=== PATIENT | female | born 1975 | race Caucasian/White ===

== ENCOUNTER 2017-03-09 22:15 | Inpatient (IN) | payer OTHER ==
[~2017-03-09] VITALS: Ht 170.2 cm; Wt 77.1 kg
[2017-03-10] MEDS ORDERED: diphenhydrAMINE 50 MG CAPSULE PO PRN (00:45)
[2017-03-10] MEDS ORDERED: LORAZEPAM 2 MG/1 ML VIAL IM PRN (00:45)
[2017-03-10] MEDS ORDERED: MIRALAX 17 GM POWD.PACK PO PRN (00:45)
[2017-03-10] MEDS ORDERED: DIAZEPAM 5 MG TABLET PO PRN (00:45)
[2017-03-10] MEDS ORDERED: DIAZEPAM 10 MG TABLET PO PRN ×2 (00:45)
[2017-03-10] MEDS ORDERED: LOPERAMIDE HCL 2 MG CAPSULE PO PRN ×2 (00:45)
[2017-03-10] MEDS ORDERED: MAGNESIUM HYDROXIDE 30 ML LIQUID UDC PO PRN (00:45)
[2017-03-10] MEDS ORDERED: ACETAMINOPHEN 325 MG TABLET PO PRN (00:45)
[2017-03-10] MEDS ORDERED: MAG HYDROX/AL HYDROX/SIMETH 30 ML LIQUID UDC PO PRN (00:45)
[2017-03-10] MEDS ORDERED: BUPRENORPHINE HCL 2 MG TAB.SUBL SL PRN (00:45)
[2017-03-10] MEDS ORDERED: diphenhydrAMINE 25 MG CAP PO ONE ×4 (02:15→02:36)
[2017-03-10] MEDS ORDERED: diphenhydrAMINE 25 MG CAP PO PRN ×2 (02:15)
[2017-03-10] MEDS: CLONIDINE HCL 0.1 MG TABLET PO PRN ×3 (02:24→17:15)
[2017-03-10] MEDS ORDERED: CLONIDINE HCL 0.1 MG TABLET ONE (02:37)
[2017-03-10 03:24] LABS: *AMPHETAMINE, URINE NEGATIVE (NEGATIVE); *BARBITURATE, URINE NEGATIVE (NEGATIVE); *CANNABINOID, URINE NEGATIVE (NEGATIVE); *COCCAINE, URINE NEGATIVE (NEGATIVE); *OPIATE, URINE NEGATIVE (NEGATIVE); *PHENCYCLIDINE SCREEN,URINE NEGATIVE (NEGATIVE)
[2017-03-10 04:00] VITALS: BP 155/98
[2017-03-10] MEDS ORDERED: DOCU-141 PO (04:11)
[2017-03-10] MEDS ORDERED: BETA15OI TP (04:11)
[2017-03-10] MEDS ORDERED: PHEN57OI20 RC (04:11)
[2017-03-10] MEDS ORDERED: BACL20TA PO (04:11)
[2017-03-10] MEDS ORDERED: AMLO10TA4 PO (04:11)
[2017-03-10] MEDS ORDERED: BUSP10TA3 PO (04:11)
[2017-03-10] MEDS ORDERED: QUET200T PO (04:11)
[2017-03-10 08:00] VITALS: BP 141/85
[2017-03-10 08:00] LABS: *URINE HCG, QUAL NEGATIVE (NEGATIVE)
[2017-03-10 08:47] LABS: BASOPHILS # (AUTO) 0.1 K/uL (0.0-8.0); EOSINOPHILS # (AUTO) 0.3 K/uL (0.0-0.7); HEMATOCRIT 42.5 % (31.2-41.9); HEMOGLOBIN 14.1 g/dL (10.9-14.3); MEAN CORPUSCULAR HGB CONC 33 g/dL (32.3-35.6); MEAN CORPUSCULAR VOLUME 87.7 fL (75.5-95.3); MONOCYTES # (AUTO) 0.3 K/uL (2.0-10.0); MONOCYTES % (AUTO) 3.8 % (0.0-11.0); NEUTROPHILS # (AUTO) 5.7 K/uL (1.8-8.9); NEUTROPHILS % (AUTO) 67.2 % (38.5-71.5); PLATELET COUNT (AUTO) 259 K/uL (179-408); RED BLOOD CELL COUNT(AUTO) 4.84 MIL/uL (3.63-4.92); WHITE BLOOD COUNT (AUTO) 8.5 K/uL (3.8-11.8)
[2017-03-10 08:55] LABS: ETHANOL < 3 MG/DL (0-0)
[2017-03-10 08:58] LABS: ALANINE AMINOTRANSFERASE 16 U/L (14-59); ALKALINE PHOSPHATASE 69 U/L (50-136); ASPARTATE AMINOTRANSFERASE 14 U/L (15-37); BILIRUBIN,TOTAL 0.2 mg/dL (0.2-1.0); CARBON DIOXIDE 31 mmol/L (21-32); CHLORIDE 106 mmol/L (98-107); CREATININE 0.7 mg/dL (0.6-1.3); GLUCOSE 98 mg/dL (74-106); MAGNESIUM 2.1 mg/dL (1.8-2.4); POTASSIUM 4.5 mmol/L (3.5-5.1); TOTAL PROTEIN, SERUM 7.1 g/dL (6.4-8.2); UREA NITROGEN, BLOOD 7 mg/dL (7-18)
[2017-03-10] MEDS: BUPRENORPHINE HCL 2 MG TAB.SUBL SL SCH ×3 (09:00→17:00)
[2017-03-10] MEDS: DIAZEPAM 10 MG TABLET PO SCH ×4 (09:08→20:47)
[2017-03-10] MEDS: METHOCARBAMOL 750 MG TABLET PO PRN ×2 (09:08→16:10)
[2017-03-10] MEDS: DICYCLOMINE HCL 20 MG TABLET PO PRN ×2 (09:08→20:47)
[2017-03-10] MEDS: ONDANSETRON ODT 4 MG TAB.RAPDIS SL PRN ×2 (09:09→20:48)
[2017-03-10 12:00] VITALS: BP 136/80
[2017-03-10] MEDS: VENLAFAXINE XR 75 MG CAP.SR.24H PO SCH (12:17)
[2017-03-10] MEDS ORDERED: DOCUSATE SODIUM 250 MG CAPSULE PO PRN (12:45)
[2017-03-10] MEDS ORDERED: NICOTINE POLACRILEX 4 MG GUM-PK OF TEN BC PRN (12:45)
[2017-03-10] MEDS ORDERED: NICOTINE 14 MG/24HR PATCH TD PRN (12:45)
[2017-03-10] MEDS ORDERED: AMLODIPINE 10 MG TABLET PO ONE (13:00)
[2017-03-10 16:00] VITALS: BP 134/79
[2017-03-10] MEDS: ONDANSETRON 4 MG/2 ML VIAL IM PRN (17:02)
[2017-03-10] MEDS: IBUPROFEN 600 MG TABLET PO PRN (17:02)
[2017-03-10 20:00] VITALS: BP 112/74
[2017-03-10] MEDS: GABAPENTIN 300 MG CAPSULE PO SCH (20:47)
[2017-03-11] VITALS: BP 110/71
[2017-03-11] MEDS: ONDANSETRON 4 MG/2 ML VIAL IM PRN (01:43)
[2017-03-11] MEDS: QUETIAPINE FUMARATE 100 MG TABLET PO PRN (01:43)
[2017-03-11 04:00] VITALS: BP 108/68
[2017-03-11 08:00] VITALS: BP 128/94
[2017-03-11] MEDS: METHOCARBAMOL 750 MG TABLET PO PRN ×2 (08:10→20:15)
[2017-03-11] MEDS: IBUPROFEN 600 MG TABLET PO PRN (08:10)
[2017-03-11] MEDS: VENLAFAXINE XR 75 MG CAP.SR.24H PO SCH (08:10)
[2017-03-11] MEDS: AMLODIPINE 10 MG TABLET PO SCH (08:10)
[2017-03-11] MEDS: GABAPENTIN 300 MG CAPSULE PO SCH ×3 (08:10→20:15)
[2017-03-11] MEDS: CLONIDINE HCL 0.1 MG TABLET PO PRN (08:11)
[2017-03-11] MEDS: BUPRENORPHINE HCL 2 MG TAB.SUBL SL SCH ×4 (08:11→20:15)
[2017-03-11] MEDS: DIAZEPAM 10 MG TABLET PO SCH ×3 (08:11→20:15)
[2017-03-11] MEDS ORDERED: TUBERCULIN,PURIF.PROT.DERIV. 5 TU/0.1 ML TEST ID ONE (09:00)
[2017-03-11 09:06] LABS: HEPATITIS B SURFACE AG Negative (Negative)
[2017-03-11 12:00] VITALS: BP 136/95
[2017-03-11 16:00] VITALS: BP 100/60
[2017-03-11] MEDS ORDERED: KETOROLAC TROMETHAMINE 30 MG INJ IM PRN (16:15)
[2017-03-11 20:00] VITALS: BP 121/75
[2017-03-11] MEDS ORDERED: CLONIDINE HCL 0.1 MG TABLET PO SCH (21:00)
[2017-03-12] VITALS: BP 104/62
[2017-03-12 04:00] VITALS: BP 97/60
[2017-03-12 08:00] VITALS: BP 123/84
[2017-03-12] MEDS: METHOCARBAMOL 750 MG TABLET PO PRN (08:42)
[2017-03-12] MEDS: VENLAFAXINE XR 75 MG CAP.SR.24H PO SCH (08:43)
[2017-03-12] MEDS: GABAPENTIN 300 MG CAPSULE PO SCH ×2 (08:43→15:02)
[2017-03-12] MEDS: AMLODIPINE 10 MG TABLET PO SCH (08:43)
[2017-03-12] MEDS: DIAZEPAM 5 MG TABLET PO SCH ×3 (08:44→17:26)
[2017-03-12] MEDS ORDERED: BUPRENORPHINE HCL 2 MG TAB.SUBL SL SCH (09:00)
[2017-03-12] MEDS ORDERED: PNEUMOCOCCAL 23-VAL P-SAC VAC 0.5 ML VIAL IM ONE (09:00)
[2017-03-12 12:58] VITALS: BP 110/72
[2017-03-12] MEDS: BUPRENORPHINE HCL 2 MG TAB.SUBL SL SCH ×2 (15:03→20:29)
[2017-03-12] MEDS: BACLOFEN 10 MG TABLET PO SCH ×2 (15:03→20:28)
[2017-03-12 16:00] VITALS: BP 121/84
[2017-03-12 20:17] VITALS: BP 118/82
[2017-03-12] MEDS: CLONIDINE HCL 0.1 MG TABLET PO SCH (20:28)
[2017-03-12] MEDS ORDERED: DIAZEPAM 10 MG TABLET PO SCH (21:00)
[2017-03-12] MEDS ORDERED: GABAPENTIN 300 MG CAPSULE PO SCH (21:00)
[2017-03-12] MEDS: QUETIAPINE FUMARATE 100 MG TABLET PO PRN (23:03)
[2017-03-12] MEDS ORDERED: QUETIAPINE FUMARATE 25 MG TABLET ONE (23:16)
[2017-03-13 08:00] VITALS: BP 114/64
[2017-03-13] MEDS: GABAPENTIN 300 MG CAPSULE PO SCH ×3 (08:41→20:11)
[2017-03-13] MEDS: VENLAFAXINE XR 75 MG CAP.SR.24H PO SCH (08:41)
[2017-03-13] MEDS: BACLOFEN 10 MG TABLET PO SCH ×2 (08:41→14:07)
[2017-03-13] MEDS: DIAZEPAM 5 MG TABLET PO SCH ×3 (08:41→20:11)
[2017-03-13] MEDS: BUPRENORPHINE HCL 2 MG TAB.SUBL SL SCH ×3 (08:41→20:12)
[2017-03-13] MEDS: CLONIDINE HCL 0.1 MG TABLET PO SCH ×2 (08:42→20:12)
[2017-03-13] MEDS: AMLODIPINE 10 MG TABLET PO SCH (08:42)
[2017-03-13 12:00] VITALS: BP 96/60
[2017-03-13 16:00] VITALS: BP 104/71
[2017-03-13 20:09] VITALS: BP 105/64
[2017-03-13] MEDS: DICYCLOMINE HCL 20 MG TABLET PO PRN (20:11)
[2017-03-13] MEDS: BACLOFEN 20 MG TABLET PO SCH (20:12)
[2017-03-14 08:00] VITALS: BP 110/68
[2017-03-14] MEDS: VENLAFAXINE XR 75 MG CAP.SR.24H PO SCH (08:08)
[2017-03-14] MEDS: GABAPENTIN 300 MG CAPSULE PO SCH ×3 (08:08→22:26)
[2017-03-14] MEDS: BUPRENORPHINE HCL 2 MG TAB.SUBL SL SCH ×2 (08:08→22:26)
[2017-03-14] MEDS: DIAZEPAM 5 MG TABLET PO SCH ×2 (08:08→22:26)
[2017-03-14] MEDS: BACLOFEN 20 MG TABLET PO SCH ×3 (08:09→22:26)
[2017-03-14] MEDS: CLONIDINE HCL 0.1 MG TABLET PO SCH ×3 (08:09→22:26)
[2017-03-14 12:00] VITALS: BP 115/73
[2017-03-14 17:00] VITALS: BP 109/66
[2017-03-14 20:00] VITALS: BP 106/65
[2017-03-15] VITALS: BP 102/60
[2017-03-15 04:00] VITALS: BP 105/66
[2017-03-15 08:00] VITALS: BP 112/66
[2017-03-15] MEDS: VENLAFAXINE XR 75 MG CAP.SR.24H PO SCH (08:56)
[2017-03-15] MEDS: BACLOFEN 20 MG TABLET PO SCH ×3 (08:56→20:23)
[2017-03-15] MEDS: GABAPENTIN 300 MG CAPSULE PO SCH (08:57)
[2017-03-15] MEDS: CLONIDINE HCL 0.1 MG TABLET PO SCH ×3 (08:57→20:23)
[2017-03-15] MEDS ORDERED: BUPRENORPHINE HCL 2 MG TAB.SUBL SL SCH (09:00)
[2017-03-15] MEDS ORDERED: DIAZEPAM 5 MG TABLET PO SCH (09:00)
[2017-03-15 12:00] VITALS: BP 103/63
[2017-03-15] MEDS: GABAPENTIN 400 MG CAPSULE PO SCH ×2 (15:27→20:23)
[2017-03-15 16:00] VITALS: BP 103/63
[2017-03-15] MEDS ORDERED: HYDROXYZINE PAMOATE 25 MG CAPSULE PO PRN (16:30)
[2017-03-15 20:00] VITALS: BP 104/68
[2017-03-15] MEDS ORDERED: DIPH50CA37 PO (20:03)
[2017-03-15] MEDS ORDERED: GABA-536 PO (20:03)
[2017-03-15] MEDS ORDERED: CLON0.1T14 PO (20:03)
[2017-03-15] MEDS ORDERED: IBUP-1955 PO (20:03)
[2017-03-15] MEDS ORDERED: HYDR-3895 PO (20:03)
[2017-03-15] MEDS ORDERED: BACL20TA PO (20:03)
[2017-03-15] MEDS ORDERED: VENL75CA56 PO (20:03)
[2017-03-15] MEDS ORDERED: DICY20TA28 PO (20:03)
[2017-03-15] MEDS: QUETIAPINE FUMARATE 100 MG TABLET PO PRN (22:08)
[2017-03-16 08:13] VITALS: BP 108/69
[2017-03-16] MEDS: BACLOFEN 20 MG TABLET PO SCH (08:48)
[2017-03-16] MEDS: GABAPENTIN 400 MG CAPSULE PO SCH (08:48)
[2017-03-16] MEDS: VENLAFAXINE XR 75 MG CAP.SR.24H PO SCH (08:48)
[2017-03-16 08:49] VITALS: BP 108/69
[2017-03-16] MEDS: CLONIDINE HCL 0.1 MG TABLET PO SCH (08:49)
== END 2017-03-16 09:30 | disposition other institution (70) | DRG 895 ==
LOC: SRC 03-10 00:50
PROVIDERS: ADMIT Internal Medicine; ATTEND Internal Medicine
PROC: HZ2ZZZZ Detoxification Services for Substance Abuse Treatment (ICD-10-PCS; principal; 2017-03-10)
PROC: HZ41ZZZ Group Counseling for Substance Abuse Treatment, Behavioral (ICD-10-PCS; 2017-03-12)
PROC: HZ31ZZZ Individual Counseling for Substance Abuse Treatment, Behavioral (ICD-10-PCS; 2017-03-13)
DX: F11.23 Opioid dependence with withdrawal (principal); F33.2 Major depressive disorder, recurrent severe without psychotic features; I10 Essential (primary) hypertension; Z79.899 Other long term (current) drug therapy; Z81.1 Family history of alcohol abuse and dependence; Z81.8 Family history of other mental and behavioral disorders; F13.230 Sedative, hypnotic or anxiolytic dependence with withdrawal, uncomplicated; Z87.442 Personal history of urinary calculi; Z72.0 Tobacco use; F41.9 Anxiety disorder, unspecified
CPT/HCPCS: 36415; 70030-TC; 80307; 80346; 83735; 84703; 85025; 86580; 86592; 86705; 86803; 87340; 87806; A4663; G0480; J2405; Q0162; Q0163

== ENCOUNTER 2017-10-25 18:40 | Inpatient (IN) | payer OTHER ==
[~2017-10-25] VITALS: Ht 172.7 cm; Wt 81.6 kg
[~2017-10-25 18:40] MED LIST: BACL20TA PO; CLON0.1T14 PO; DICY20TA28 PO; DIPH50CA37 PO; DOCU-141 PO; GABA-536 PO; HYDR-3895 PO; IBUP-1955 PO; PHEN57OI20 RC; QUET200T PO; VENL75CA56 PO
[2017-10-26] MEDS ORDERED: ONDANSETRON ODT 4 MG TAB.RAPDIS SL PRN (00:45)
[2017-10-26] MEDS ORDERED: MAGNESIUM HYDROXIDE 30 ML LIQUID UDC PO PRN (00:45)
[2017-10-26] MEDS ORDERED: MIRALAX 17 GM POWD.PACK PO PRN (00:45)
[2017-10-26] MEDS ORDERED: MAG HYDROX/AL HYDROX/SIMETH 30 ML LIQUID UDC PO PRN (00:45)
[2017-10-26] MEDS ORDERED: LORAZEPAM 2 MG/1 ML VIAL IM PRN (00:45)
[2017-10-26] MEDS ORDERED: DICYCLOMINE HCL 20 MG TABLET PO PRN (00:45)
[2017-10-26] MEDS ORDERED: ONDANSETRON 4 MG/2 ML VIAL IM PRN (00:45)
[2017-10-26] MEDS ORDERED: LOPERAMIDE HCL 2 MG CAPSULE PO PRN ×2 (00:45)
[2017-10-26] MEDS ORDERED: LORAZEPAM 1 MG TABLET PO PRN (00:45)
[2017-10-26] MEDS ORDERED: BUPRENORPHINE HCL 2 MG TAB.SUBL SL PRN (00:45)
[2017-10-26] MEDS ORDERED: diphenhydrAMINE 50 MG CAPSULE PO PRN (00:45)
[2017-10-26] MEDS ORDERED: QUET100T PO (00:47)
[2017-10-26] MEDS ORDERED: LEVE500T20 PO (00:47)
[2017-10-26] MEDS ORDERED: VENL75CA56 PO (00:47)
[2017-10-26] MEDS ORDERED: VENL37.515 PO (00:47)
[2017-10-26] MEDS ORDERED: DICY20TA11 PO (00:47)
[2017-10-26] MEDS ORDERED: GABA800T2 PO (00:47)
[2017-10-26] MEDS ORDERED: HYDR26CR TP (00:47)
[2017-10-26] MEDS ORDERED: DOCU-141 PO (00:47)
[2017-10-26 01:04] LABS: *URINE HCG, QUAL NEGATIVE (NEGATIVE)
[2017-10-26 01:07] LABS: *AMPHETAMINE, URINE NEGATIVE (NEGATIVE); *BARBITURATE, URINE NEGATIVE (NEGATIVE); *CANNABINOID, URINE NEGATIVE (NEGATIVE); *COCCAINE, URINE NEGATIVE (NEGATIVE); *OPIATE, URINE POSITIVE (NEGATIVE); *PHENCYCLIDINE SCREEN,URINE NEGATIVE (NEGATIVE)
[2017-10-26 02:00] LABS: BASOPHILS # (AUTO) 0.1 K/uL (0.0-8.0); EOSINOPHILS # (AUTO) 0.6 K/uL (0.0-0.7); HEMATOCRIT 39.8 % (31.2-41.9); HEMOGLOBIN 13.2 g/dL (10.9-14.3); LYMPHOCYTES # (AUTO) 2.5 K/uL (20.0-40.0); LYMPHOCYTES % (AUTO) 34.2 % (20.5-51.5); MEAN CORPUSCULAR HGB CONC 33 g/dL (32.3-35.6); MEAN CORPUSCULAR VOLUME 87.5 fL (75.5-95.3); MONOCYTES # (AUTO) 0.5 K/uL (2.0-10.0); MONOCYTES % (AUTO) 6.3 % (0.0-11.0); NEUTROPHILS # (AUTO) 3.7 K/uL (1.8-8.9); NEUTROPHILS % (AUTO) 50.5 % (38.5-71.5); PLATELET COUNT (AUTO) 217 K/uL (179-408); RED BLOOD CELL COUNT(AUTO) 4.55 MIL/uL (3.63-4.92); WHITE BLOOD COUNT (AUTO) 7.4 K/uL (3.8-11.8)
[2017-10-26 02:04] LABS: ETHANOL < 3 MG/DL (0-0)
[2017-10-26 02:30] LABS: ALANINE AMINOTRANSFERASE 23 U/L (14-59); ALKALINE PHOSPHATASE 59 U/L (50-136); AMYLASE 43 U/L (25-115); ASPARTATE AMINOTRANSFERASE 13 U/L (15-37); BILIRUBIN,TOTAL 0.1 mg/dL (0.2-1.0); CARBON DIOXIDE 31 mmol/L (21-32); CHLORIDE 103 mmol/L (98-107); CREATININE 0.8 mg/dL (0.6-1.3); GLUCOSE 112 mg/dL (74-106); LIPASE 125 U/L (73-393); MAGNESIUM 1.8 mg/dL (1.8-2.4); TOTAL PROTEIN, SERUM 6.7 g/dL (6.4-8.2); UREA NITROGEN, BLOOD 7 mg/dL (7-18)
[2017-10-26 02:41] LABS: THYROID STIMULATING HORMONE 1.457 mIU/mL (0.358-3.740)
[2017-10-26 04:00] VITALS: BP 127/60
[2017-10-26] MEDS: LORAZEPAM 1 MG TABLET PO PRN ×2 (04:56→09:33)
[2017-10-26] MEDS: METHOCARBAMOL 750 MG TABLET PO PRN ×2 (04:56→13:29)
[2017-10-26 09:00] VITALS: BP 123/85
[2017-10-26] MEDS: MULTIVITAMINS,THERAPEUTIC TABLET PO SCH (09:33)
[2017-10-26] MEDS ORDERED: 5 DAY TAPER OF LORAZEPAM -SERENITY PROTOCOL PO PRN (10:30)
[2017-10-26] MEDS ORDERED: 5 DAY TAPER BUPRENORPHINE -SERENITY PROTOCOL SL PRN (10:30)
[2017-10-26 13:17] VITALS: BP 137/83
[2017-10-26] MEDS: LORAZEPAM 1 MG TABLET PO SCH ×3 (13:30→20:57)
[2017-10-26] MEDS: BUPRENORPHINE HCL 2 MG TAB.SUBL SL SCH ×3 (14:00→20:57)
[2017-10-26 17:12] VITALS: BP 131/60
[2017-10-26] MEDS: VENLAFAXINE 37.5 MG TABLET PO SCH (17:18)
[2017-10-26] MEDS: BACLOFEN 20 MG TABLET PO PRN ×2 (17:18→21:23)
[2017-10-26 20:00] VITALS: BP 149/87
[2017-10-26] MEDS: QUETIAPINE FUMARATE 100 MG TABLET PO SCH (20:57)
[2017-10-27] VITALS: BP 137/91
[2017-10-27 04:00] VITALS: BP 143/94
[2017-10-27] MEDS: HYDROXYZINE PAMOATE 25 MG CAPSULE PO PRN ×2 (06:11→14:10)
[2017-10-27] MEDS: BACLOFEN 20 MG TABLET PO PRN ×2 (06:17→14:10)
[2017-10-27 08:00] VITALS: BP 154/99
[2017-10-27 08:08] LABS: HEPATITIS B SURFACE AG Negative (Negative)
[2017-10-27] MEDS: LORAZEPAM 1 MG TABLET PO SCH ×3 (08:39→22:26)
[2017-10-27] MEDS: MULTIVITAMINS,THERAPEUTIC TABLET PO SCH (08:39)
[2017-10-27] MEDS: VENLAFAXINE 37.5 MG TABLET PO SCH (08:40)
[2017-10-27] MEDS: BUPRENORPHINE HCL 2 MG TAB.SUBL SL SCH ×3 (08:43→22:29)
[2017-10-27] MEDS ORDERED: TUBERCULIN,PURIF.PROT.DERIV. 5 TU/0.1 ML TEST ID ONE (09:00)
[2017-10-27] MEDS: CLONIDINE HCL 0.1 MG TABLET PO PRN ×2 (09:54→16:36)
[2017-10-27] MEDS: IBUPROFEN 600 MG TABLET PO PRN (11:13)
[2017-10-27 12:00] VITALS: BP 151/103
[2017-10-27] MEDS: LEVETIRACETAM 500 MG TABLET PO SCH ×2 (14:55→22:25)
[2017-10-27] MEDS: GABAPENTIN 400 MG CAPSULE PO SCH ×2 (14:55→16:36)
[2017-10-27] MEDS: DOCUSATE SODIUM 100 MG CAPSULE PO SCH (14:55)
[2017-10-27] MEDS ORDERED: BUPRENORPHINE HCL 2 MG TAB.SUBL SL ONE (15:30)
[2017-10-27] MEDS ORDERED: LORAZEPAM 1 MG TABLET PO ONE (15:30)
[2017-10-27 16:00] VITALS: BP 161/103
[2017-10-27] MEDS: ACETAMINOPHEN 325 MG TABLET PO PRN (16:36)
[2017-10-27] MEDS: BACLOFEN 20 MG TABLET PO SCH ×2 (17:06→23:59)
[2017-10-27 20:00] VITALS: BP 148/94
[2017-10-27] MEDS: QUETIAPINE FUMARATE 100 MG TABLET PO SCH (22:26)
[2017-10-28] VITALS (7 sets, daily range): BP systolic 117–149; BP diastolic 78–97
[2017-10-28] MEDS: BACLOFEN 20 MG TABLET PO SCH ×3 (06:51→17:24)
[2017-10-28] MEDS ORDERED: VENLAFAXINE 37.5 MG TABLET PO SCH (09:00)
[2017-10-28] MEDS ORDERED: BUPRENORPHINE HCL 2 MG TAB.SUBL SL SCH (09:00)
[2017-10-28] MEDS: VENLAFAXINE XR 75 MG CAP.SR.24H PO SCH (09:19)
[2017-10-28] MEDS: MULTIVITAMINS,THERAPEUTIC TABLET PO SCH (09:19)
[2017-10-28] MEDS: DOCUSATE SODIUM 100 MG CAPSULE PO SCH (09:19)
[2017-10-28] MEDS: LEVETIRACETAM 500 MG TABLET PO SCH ×2 (09:19→20:35)
[2017-10-28] MEDS: GABAPENTIN 400 MG CAPSULE PO SCH ×3 (09:19→17:24)
[2017-10-28] MEDS: LORAZEPAM 1 MG TABLET PO SCH ×4 (09:19→20:35)
[2017-10-28] MEDS: BUPRENORPHINE HCL 2 MG TAB.SUBL SL SCH ×2 (15:13→20:35)
[2017-10-28] MEDS: QUETIAPINE FUMARATE 100 MG TABLET PO SCH (20:35)
[2017-10-29] VITALS: BP 100/55
[2017-10-29 04:00] VITALS: BP 122/59
[2017-10-29] MEDS: BACLOFEN 20 MG TABLET PO SCH ×4 (05:15→17:24)
[2017-10-29 08:00] VITALS: BP 142/89
[2017-10-29] MEDS: GABAPENTIN 400 MG CAPSULE PO SCH ×3 (09:01→16:47)
[2017-10-29] MEDS: MULTIVITAMINS,THERAPEUTIC TABLET PO SCH (09:01)
[2017-10-29] MEDS: DOCUSATE SODIUM 100 MG CAPSULE PO SCH (09:01)
[2017-10-29] MEDS: LORAZEPAM 1 MG TABLET PO SCH ×3 (09:01→20:38)
[2017-10-29] MEDS: LEVETIRACETAM 500 MG TABLET PO SCH ×2 (09:02→20:38)
[2017-10-29] MEDS: BUPRENORPHINE HCL 2 MG TAB.SUBL SL SCH ×3 (09:02→20:38)
[2017-10-29] MEDS: VENLAFAXINE XR 75 MG CAP.SR.24H PO SCH (09:02)
[2017-10-29 12:00] VITALS: BP 144/98
[2017-10-29 16:00] VITALS: BP 175/98
[2017-10-29] MEDS: CLONIDINE HCL 0.1 MG TABLET PO PRN (16:47)
[2017-10-29 20:00] VITALS: BP 119/95
[2017-10-29] MEDS: QUETIAPINE FUMARATE 100 MG TABLET PO SCH (20:39)
[2017-10-30] VITALS: BP 103/71
[2017-10-30 04:00] VITALS: BP 115/62
[2017-10-30] MEDS: BACLOFEN 20 MG TABLET PO SCH ×4 (06:07→17:27)
[2017-10-30 08:22] VITALS: BP 145/89
[2017-10-30] MEDS: GABAPENTIN 400 MG CAPSULE PO SCH ×3 (08:44→17:28)
[2017-10-30] MEDS: VENLAFAXINE XR 75 MG CAP.SR.24H PO SCH (08:44)
[2017-10-30] MEDS: LORAZEPAM 1 MG TABLET PO SCH ×2 (08:44→20:23)
[2017-10-30] MEDS: LEVETIRACETAM 500 MG TABLET PO SCH ×2 (08:44→20:23)
[2017-10-30] MEDS: MULTIVITAMINS,THERAPEUTIC TABLET PO SCH (08:44)
[2017-10-30] MEDS: DOCUSATE SODIUM 100 MG CAPSULE PO SCH (08:44)
[2017-10-30] MEDS ORDERED: BUPRENORPHINE HCL 2 MG TAB.SUBL SL SCH (09:00)
[2017-10-30 12:05] VITALS: BP 150/94
[2017-10-30] MEDS: CLONIDINE HCL 0.1 MG TABLET PO PRN (13:17)
[2017-10-30 16:30] VITALS: BP 134/96
[2017-10-30 20:00] VITALS: BP 139/84
[2017-10-30] MEDS: QUETIAPINE FUMARATE 100 MG TABLET PO SCH (20:23)
[2017-10-30] MEDS: IBUPROFEN 600 MG TABLET PO PRN (20:23)
[2017-10-31] MEDS: BACLOFEN 20 MG TABLET PO SCH ×4 (06:00→17:32)
[2017-10-31 08:00] VITALS: BP 147/68
[2017-10-31] MEDS: VENLAFAXINE XR 75 MG CAP.SR.24H PO SCH (08:40)
[2017-10-31] MEDS: MULTIVITAMINS,THERAPEUTIC TABLET PO SCH (08:40)
[2017-10-31] MEDS: DOCUSATE SODIUM 100 MG CAPSULE PO SCH (08:40)
[2017-10-31] MEDS: GABAPENTIN 400 MG CAPSULE PO SCH ×3 (08:40→17:32)
[2017-10-31] MEDS: LEVETIRACETAM 500 MG TABLET PO SCH ×2 (08:40→20:58)
[2017-10-31 12:00] VITALS: BP 143/97
[2017-10-31] MEDS: CLONIDINE HCL 0.1 MG TABLET PO PRN (14:27)
[2017-10-31] MEDS ORDERED: CLON0.1T14 PO (14:55)
[2017-10-31 16:00] VITALS: BP 136/96
[2017-10-31 20:00] VITALS: BP 131/98
[2017-10-31] MEDS: QUETIAPINE FUMARATE 100 MG TABLET PO SCH (20:58)
[2017-11-01] VITALS: BP 94/55
[2017-11-01] MEDS: HYDROXYZINE PAMOATE 25 MG CAPSULE PO PRN (03:55)
[2017-11-01 04:00] VITALS: BP 127/90
[2017-11-01] MEDS: ACETAMINOPHEN 325 MG TABLET PO PRN (04:29)
[2017-11-01] MEDS: BACLOFEN 20 MG TABLET PO SCH ×2 (06:26)
[2017-11-01 08:00] VITALS: BP 149/96
[2017-11-01 08:28] VITALS: BP 149/93
[2017-11-01] MEDS: MULTIVITAMINS,THERAPEUTIC TABLET PO SCH (08:28)
[2017-11-01] MEDS: LEVETIRACETAM 500 MG TABLET PO SCH (08:28)
[2017-11-01] MEDS: CLONIDINE HCL 0.1 MG TABLET PO PRN (08:28)
[2017-11-01] MEDS: DOCUSATE SODIUM 100 MG CAPSULE PO SCH (08:28)
[2017-11-01] MEDS: VENLAFAXINE XR 75 MG CAP.SR.24H PO SCH (08:28)
[2017-11-01] MEDS: GABAPENTIN 400 MG CAPSULE PO SCH (08:28)
== END 2017-11-01 09:40 | disposition other institution (70) | DRG 895 ==
LOC: SRC 23:37
PROVIDERS: ADMIT Family Medicine Addiction Medicine; ATTEND Family Medicine
PROC: HZ2ZZZZ Detoxification Services for Substance Abuse Treatment (ICD-10-PCS; principal; 2017-10-25)
PROC: HZ31ZZZ Individual Counseling for Substance Abuse Treatment, Behavioral (ICD-10-PCS; 2017-10-27)
PROC: HZ41ZZZ Group Counseling for Substance Abuse Treatment, Behavioral (ICD-10-PCS; 2017-10-28)
DX: F11.23 Opioid dependence with withdrawal (principal); F33.1 Major depressive disorder, recurrent, moderate; F41.9 Anxiety disorder, unspecified; F13.239 Sedative, hypnotic or anxiolytic dependence with withdrawal, unspecified; Z79.899 Other long term (current) drug therapy; I10 Essential (primary) hypertension
CPT/HCPCS: 36415; 70030-TC; 80307; 83690; 83735; 84443; 84703; 85025; 86592; 86705; 86803; 87340; 87806; G0480